=== PATIENT | female | born 1955 | race Caucasian/White ===

== ENCOUNTER 2022-07-08 06:36 | Day surgery (SDC) | payer OTHER ==
[~2022-07-08] VITALS: Ht 154.9 cm; Wt 73.0 kg
[~2022-07-08 06:36] MED LIST: AVALIDE 300-121 EACH PO; HYDRALAZINE HCL25 MG PO; METFORMIN HCL500 M3 PO; VERELAN240 MG PO; ZOCOR40 MG PO; ZYRTEC10 M3 PO
[2022-07-08] MEDS ORDERED: ACETAMINOPHEN500 M1 PO (11:29)
== END 2022-07-08 14:30 | disposition home or self-care (01) ==
LOC: CIR.AMB 06:36
PROVIDERS: ATTEND Obstetrics & Gynecology
DX: N95.0 Postmenopausal bleeding (principal); N84.1 Polyp of cervix uteri; Z88.6 Allergy status to analgesic agent; I10 Essential (primary) hypertension; E78.5 Hyperlipidemia, unspecified; Z86.16 Personal history of COVID-19; Z20.822 Contact with and (suspected) exposure to COVID-19